=== PATIENT | female | born 1950 | race Caucasian/White ===

== ENCOUNTER 2019-08-27 06:00 | Outpatient (RCR) | payer MEDICARE, SELFPAY | END 2019-09-26 00:01 | LOC: SPT 06:00 | PROVIDERS: Family Provider Family Medicine; Visit Provider Specialist | DX: Z47.1 Aftercare following joint replacement surgery (principal); Z96.611 Presence of right artificial shoulder joint; M25.511 Pain in right shoulder; M25.611 Stiffness of right shoulder, not elsewhere classified | CPT/HCPCS: 97110 ×3; 97530 ==

== ENCOUNTER 2020-02-09 14:39 | Outpatient (CLI) | payer MEDICARE, SELFPAY ==
--- NOTE | 2020-02-09 14:45 | MM_ITS ---
WS: [id number] BILATERAL SCREENING DIGITAL MAMMOGRAM WITH CAD HISTORY: SCREEN COMPARISON: 06/11/2016 Bilateral CC and MLO views submitted. Computer aided detection analyzed. Breast composition: There are scattered areas of fibroglandular density. No suspicious masses, microc alcifications or architectural distortion. Benign calcifications within each breast. MM/[place] [id number] IMPRESSION: BI-RADS: 2-Benign FOLLOW UP: 1 Year Follow-up
== END 2020-02-09 14:40 | disposition home or self-care (01) ==
PROVIDERS: PCP Family Medicine; Visit Provider Family Medicine
DX: Z12.31 Encounter for screening mammogram for malignant neoplasm of breast (principal)
CPT/HCPCS: 77067

== ENCOUNTER → 2020-04-16 11:38 | Outpatient (BNVA) | payer MEDICARE, SELFPAY | PROVIDERS: PCP Family Medicine; Visit Provider Family Medicine | DX: F41.8 Other specified anxiety disorders (principal) | CPT/HCPCS: 80048; 80178 ==

== ENCOUNTER → 2020-04-18 11:08 | Outpatient (BNVA) | payer MEDICARE, SELFPAY | PROVIDERS: PCP Family Medicine; Visit Provider Family Medicine | DX: M16.9 Osteoarthritis of hip, unspecified (principal); E11.9 Type 2 diabetes mellitus without complications; M16.12 Unilateral primary osteoarthritis, left hip; F41.8 Other specified anxiety disorders; Z68.33 Body mass index [BMI] 33.0-33.9, adult; Z71.89 Other specified counseling | CPT/HCPCS: 83036 ==

== ENCOUNTER 2020-04-19 12:37 | Outpatient (CLI) | payer MEDICARE, SELFPAY ==
--- NOTE | 2020-04-19 12:42 | XRR_ITS ---
PROCEDURE INFORMATION: Exam: XR Left Hip with Pelvis when Performed Exam date and time: 04/19/2020 12:42 PM Age: 69 years old Clinical indication: Hip pain; Left hip; Additional info: Pain left hip TECHNIQUE: Imaging protocol: XR Left hip with pelvis when performed. Views: 2 or 3 views. COMPARISON: CT abdomen pelvis w con* [id number] 11/04/2018 9:47 AM FINDINGS: Bones/joints: Moderate degenerative changes within the hip including joint space narrowing and osteophyte formation. No fracture. The trabecular stress markings normal. Soft tissues: Unremarkable. XR/XR hip LT 2-3V wo/w pel* [id number] IMPRESSION: Moderate degenerative changes within the hip.
== END 2020-04-19 12:38 | disposition home or self-care (01) ==
LOC: RADWPI 12:41
PROVIDERS: PCP Family Medicine; Visit Provider Family Medicine
DX: M25.552 Pain in left hip (principal)
CPT/HCPCS: 73502

== ENCOUNTER → 2020-06-28 16:43 | Outpatient (BNVA) | payer MEDICARE, SELFPAY | PROVIDERS: PCP Family Medicine; Visit Provider Emergency Medicine | DX: Z11.59 Encounter for screening for other viral diseases (principal) | CPT/HCPCS: 87635 ==

== ENCOUNTER → 2021-05-23 15:13 | Outpatient (BNVA) | payer MEDICARE, SELFPAY | PROVIDERS: PCP Family Medicine; Visit Provider Internal Medicine | DX: Z01.812 Encounter for preprocedural laboratory examination (principal); Z20.822 Contact with and (suspected) exposure to COVID-19 | CPT/HCPCS: 87635 ==

== ENCOUNTER 2021-05-26 14:07 | Day surgery (SDC) | payer MEDICARE, SELFPAY ==
[2021-05-21 12:52] VITALS: BMI 31.3
--- NOTE | 2021-05-26 09:02 | P.HP_ITS ---
Same Day Surgery H&P Indication for Procedure/HPI DATE OF PROCEDURE: May 26, 2021 CHIEF COMPLAINT/INDICATIONFOR SURGICAL PROCEDURE: Screening PREOP DIAGNOSIS: Screen PLANNED PROCEDRUE: Operation Date: 05/26/21 11:15 Proposed Procedures p Colonoscopy G0105 Z80.0(Not Applicable) - Billy Velasquez MD Medications/Allergies* Allergies/Adverse Reactions Allergy/AdvReac Type Severity Reaction Status Date / Time bupropion [From Wellbutrin] Allergy angry Verified 06/28/20 15:56 celecoxib [From Celebrex] Allergy nausea Verified 06/28/20 15:56 codeine Allergy nausea Verified 06/28/20 15:56 duloxetine [From Cymbalta] Allergy bleeding Verified 06/28/20 15:56 nickel Allergy unverified Verified 06/28/20 15:56 Sulfa (Sulfonamide Allergy rash Verified 06/28/20 15:56 Antibiotics) venlafaxine [From Effexor] Allergy unverified Verified 06/28/20 15:56 zonisamide [From Zonegran] Allergy tremors Verified 06/28/20 15:56 Pertinent History/Comorbid Conditions* Medical History (Updated 04/18/20 @ 20:43 by Meghana Negro MD) Depression with anxiety Type 2 diabetes mellitus Social History Smoking and tobacco status: never smoked Alcohol intake: current Alcohol intake frequency: holidays/special occasions only Pertinent Exam Findings alert, oriented x 3, clear to auscultation bilaterally, regular rate & rhythm, operative site marked and procedure specific exam findings Recommendations Surgery/Procedure today Coding Level of Care Code Acute [employer] for Kena Maravilla
[2021-05-26 14:24] VITALS: BP 155/80; PULSE 68; RESP 18; TEMP 36.2; O2SAT 96
[2021-05-26 14:38] LABS: Glucose Point of Care 136 mg/dL (70-110)
[2021-05-26] MEDS: sodium chloride 0.9% 1,000 ML 30 ML IV (14:40)
--- NOTE | 2021-05-26 15:21 | ANES.PREANE2 ---
Pre-Anesthetic Assessment Pre-Anesthetic Assessment: Height/Weight: Height 1.7 m Weight 90.718 kg Temp Pulse Resp BP Pulse Ox 97.2 F L 68 18 155/80 96 05/26/21 14:24 05/26/21 14:24 05/26/21 14:24 05/26/21 14:24 05/26/21 14:24 Proposed Procedure: Operation Date: 05/26/21 11:15 Proposed Procedures p Colonoscopy G0105 Z80.0(Not Applicable) - Billy Velasquez MD Familial anesthetic complications: none Was Beta Ruthie taken within 24 hours: N/A Was Clonidine taken within 24 hours: N/A Last intake: Intake Last Liquid Date 05/25/21 Last Liquid Time 22:00 Last Solid Date 05/24/21 Last Solid Time 12:00 Social: Social History: No alcohol and No tobacco Exam: Pre-Anes Outpt Exam: alert, oriented x 3, clear to auscultation bilaterally and regular rate & rhythm Airway: Cervical ROM: WNL MP: 2 Dentition: Full Pulmonary: Comments: hx lung cancer (not smoking-related) - s/p thoracotomy CV/HEM: CV/HEM: HTN Metabolic: Metabolic: DM and Thyroid Anesthetic Plan: ASA status: 3 Anesthesia: MAC Risk of > 500 ml blood loss (7ml/kg in children): No Meds/Allergies Current Medications: Current Medications Generic Name Dose Route Start Last Admin Trade Name Freq PRN Reason Stop Dose Admin Sodium Chloride 1,000 mls @ 30 ml s/hr 05/26/21 14:15 05/26/21 14:40 Sodium Chloride 0.9% IV 30 mls/hr .Q24H LIANA Administration PFSH Anesthesia PFSH: Medical History Depression with anxiety Type 2 diabetes mellitus Social History Smoking and tobacco status: never smoked Alcohol intake: current Alcohol intake frequency: holidays/special occasions only Data Anesthesia Other Labs: Laboratory Results - last 48 hr 05/26/21 14:32 POC Glucose 136 H Cardiac Studies: No Data to Display
[2021-05-26 15:36] VITALS: BP 155/82; PULSE 61; RESP 16; TEMP 36.1; O2SAT 97
--- NOTE | 2021-05-26 15:38 | ANE.PACU2 ---
Inpatient post-anesthesia follow up: Airway intact: Yes Vital signs: Temperature 97.2 F Pulse Rate 68 Respiratory Rate 18 Blood Pressure 155/80 Pulse Oximetry 96 Oxygen Delivery Me thod Room Air Oxygen Flow Rate Fraction of Inspir ed Oxygen Hydration adequate: Yes Nausea and vomiting: No Pain level: 1 Mental status: Baseline
[2021-05-26 15:46] VITALS: BP 153/79; PULSE 59; RESP 16; O2SAT 59
== END 2021-05-26 16:08 | disposition home or self-care (01) ==
PROVIDERS: PCP Family Medicine; Visit Provider Internal Medicine
PROC: 0DJD8ZZ Inspection of Lower Intestinal Tract, Via Natural or Artificial Opening Endoscopic (ICD-10-PCS; CPT 45378; principal; 2021-05-26 11:15)
DX: Z12.11 Encounter for screening for malignant neoplasm of colon (principal); Z80.0 Family history of malignant neoplasm of digestive organs; F32.9 Major depressive disorder, single episode, unspecified; F41.9 Anxiety disorder, unspecified; I10 Essential (primary) hypertension; E11.9 Type 2 diabetes mellitus without complications
CPT/HCPCS: 36416; 45378; 82962; 96360; G0121; J2704; J7030

== ENCOUNTER → 2021-09-11 11:07 | Outpatient (BNVA) | payer MEDICARE, SELFPAY | PROVIDERS: PCP Family Medicine; Visit Provider Family Medicine | DX: F41.8 Other specified anxiety disorders (principal); E11.9 Type 2 diabetes mellitus without complications; E03.8 Other specified hypothyroidism; E78.00 Pure hypercholesterolemia, unspecified | CPT/HCPCS: 80053; 80061; 80178; 83036; 84443; 85025 ==

== ENCOUNTER → 2021-12-30 13:12 | Outpatient (BNVA) | payer MEDICARE, SELFPAY | PROVIDERS: PCP Family Medicine; Visit Provider Family Medicine | DX: E78.00 Pure hypercholesterolemia, unspecified (principal); E11.9 Type 2 diabetes mellitus without complications; F41.8 Other specified anxiety disorders; Z00.00 Encounter for general adult medical examination without abnormal findings; E03.8 Other specified hypothyroidism | CPT/HCPCS: 80053; 80061; 80178; 83036; 85025 ==

== ENCOUNTER → 2023-09-10 10:09 | Outpatient (BNVA) | payer MEDICARE, SELFPAY | PROVIDERS: PCP Family Medicine; Visit Provider Family Medicine | DX: F41.8 Other specified anxiety disorders (principal); E11.9 Type 2 diabetes mellitus without complications; E03.8 Other specified hypothyroidism; I10 Essential (primary) hypertension; E78.00 Pure hypercholesterolemia, unspecified | CPT/HCPCS: 80053; 80061; 82043; 83036; 84439; 84443; 85025 ==

== ENCOUNTER 2023-09-14 14:25 | Outpatient (CLI) | payer MEDICARE, SELFPAY ==
--- NOTE | 2023-09-14 14:30 | XR_ITS ---
WS: [id number] Right foot, 3 views, 09/14/2023 Clinical Data: right foot pain Comparison: None. Findings: No fractures or dislocations are seen. No bone destruction or erosion is noted. The joint spaces and soft tissues are normal. There is a plantar spur. Impression: Negative right foot.
== END 2023-09-14 14:26 | disposition home or self-care (01) ==
LOC: RAD 14:27
PROVIDERS: PCP Family Medicine; Visit Provider Family Medicine
DX: M79.671 Pain in right foot (principal)
CPT/HCPCS: 73630

== ENCOUNTER 2023-09-22 08:53 | Outpatient (CLI) | payer MEDICARE, SELFPAY ==
--- NOTE | 2023-09-22 09:00 | CTR_ITS ---
PROCEDURE INFORMATION: Exam: CT Chest With Contrast; Diagnostic Exam date and time: 09/22/2023 9:05 AM Age: 73 years old Clinical indication: Shortness of breath; Prior surgery; Surgery date: 6+ months; Surgery type: Shoulder and back; Additional info: Increased SOB TECHNIQUE: Imaging protocol: Diagnostic computed tomography of the chest with contrast. Radiation optimization: All CT scans at this facility use at least one of these dose optimization techniques: automated exposure control; mA and/or kV adjustment per patient size (includes targeted exams where dose is matched to clinical indication); or iterative reconstruction. Contrast material: OMNI 350; Contrast volume: 100 ml; Contrast route: INTRAVENOUS (IV); REPORTING DATA: Count of CT and Cardiac NM exams in prior 12 months: This patient has received 0 known CTs and 0 known cardiac nuclear medicine studies in the 12 months prior to the current study. COMPARISON: CR XR chest 1V [id number] 06/16/2019 12:48 PM RADIATION DOSE METRICS: Total DLP (mGy-cm): 465.11 FINDINGS: Thyroid: The thyroid gland is diffusely enlarged. Please correlate clinically. Lungs: In the left upper lobe there is an 11 x 12 mm noncalcified nodule. Subsegmental atelectasis is noted in the lingula, right middle and bilateral lower lobes. Pleural spaces: Unremarkable. No pneumothorax. No pleural effusion. Heart: Unremarkable. No cardiomegaly. No pericardial effusion. Coronary arteries: Coronary artery calcification is present. Mediastinal space: There is mild mural thickening of the distal thoracic esophagus. Please correlate clinically, endoscopically. Lymph nodes: Calcified mediastinal and hilar lymphadenopathy is noted. Vasculature: Unremarkable. No aortic aneurysm. Bones/joints: Degenerative changes are noted in the bones. The patient is post right shoulder arthroplasty. Soft tissues: Unremarkable. CT/CT chest w con* [id number] IMPRESSION: 12 mm left upper lobe pulmonary nodule. Recommend PET-CT based on Fleischner society criteria. Query mural thickening of the distal thoracic esophagus. Please correlate clinically, endoscopically. Calcific mediastinal and hilar lymphadenopathy indicating granulomatous disease.
[2023-09-22] MEDS: iohexol 350 mg/mL 500 mL Btl (per mL) IV (09:09)
== END 2023-09-22 08:54 | disposition home or self-care (01) ==
LOC: RAD 08:54
PROVIDERS: PCP Family Medicine; Visit Provider Family Medicine
DX: Z85.118 Personal history of other malignant neoplasm of bronchus and lung (principal); R06.02 Shortness of breath; R91.1 Solitary pulmonary nodule; K22.9 Disease of esophagus, unspecified; I89.8 Other specified noninfective disorders of lymphatic vessels and lymph nodes
CPT/HCPCS: 71260; Q9967

== ENCOUNTER 2023-11-16 09:42 | Outpatient (CLI) | payer MEDICARE, SELFPAY ==
--- NOTE | 2023-11-16 11:30 | PETR_ITS ---
PROCEDURE INFORMATION: Exam: PET/CT Skull Base to Mid-thigh Exam date and time: 11/16/2023 11:01 AM Age: 73 years old Clinical indication: Characterization of solitary pulmonary nodule. 12 mm left upper lobe pulmonary nodule found on CT chest on 09/22/2023. Recommend pet-ct based on. Fleischner society criteria. Prior surgery; Surgery date: 6+ months; Surgery type: Shoulder and back. LABS AND CLINICAL REPORTS: Glucose: 126 mg/dl Treatment strategy for malignancy (PET staging): Initial Staging (PI) TECHNIQUE: Imaging protocol: Following at least four-hour fasting and following the injection of radiopharmaceutical, low dose CT images were obtained. Then, PET images were obtained. Attenuation corrected images were constructed using the CT scan. Fused images of PET and CT were reviewed. The standardized uptake values (SUV) reported below are maximum values within a region of interest, expressed in gm/ml. Exam includes orbital meatal line to mid-thigh. Radiopharmaceutical: 13.28 mCi F-18 FDG (Fluorodeoxyglucose), IV. Time of imaging post radiopharmaceutical administration: 1 hour Injection site: Right antecubital vein COMPARISON: CT chest 09/22/2023, CT abdomen pelvis w con* [id number] 11/04/2018 FINDINGS: Brain: Visualized brain has normal physiologic uptake. Pharynx: No abnormal uptake. Larynx: No abnormal uptake. Thyroid: Diffuse intense uptake up to 10.3 SUV with no discrete focal nodules is suggestive of thyroiditis. Lungs, pleura and trachea: No abnormal uptake. 13 mm left upper lobe nodule with low-grade uptake of 1 SUV is compatible with benign finding. Teardrop shaped 11 x 4 mm calcification in the right lower lobe is suggestive of sequela of granulomatous disease. No pleural effusion. Heart: Normal physiologic uptake. There is no cardiomegaly. Coronary artery calcification is present. There is no pericardial effusion. Mediastinal space: No abnormal uptake. There is a small hiatal hernia. Liver: No abnormal uptake. Gallbladder and bile ducts: No abnormal uptake. Status post cholecystectomy. Pancreas: No abnormal uptake. Spleen: No abnormal uptake. No splenomegaly. Adrenal glands: No abnormal uptake. No nodules. Kidneys and ureters: Normal physiologic uptake. No hydronephrosis. Stomach and bowel: Increased uptake in the ascending colon with no corresponding CT abnormality is likely benign. Intraperitoneal and retroperitoneal spaces: No abnormal uptake. No ascites. Urinary bladder: Normal physiologic uptake. Reproductive: No abnormal uptake. The uterus is absent post surgically. Vasculature: No abnormal uptake. No aortic aneurysm. Lymph nodes: No abnormal uptake. No lymphadenopathy in the head, neck, chest, abdomen, pelvis, and extremities. There is sequela of exposure to granulomatous disease with calcified subcarinal and bilateral hilar lymph nodes. Bones/joints: No abnormal uptake in the visualized axial and appendicular skeleton. Status post right shoulder replacement. Status post L4-S1 fusion with bilateral transpedicular internal fixation. Soft tissues: No abnormal uptake in the visualized head, neck, chest, abdomen, pelvis, and extremities. PET/PET skulltothi INITIAL [id number] IMPRESSION: No abnormal radiotracer uptake to suggest malignancy. 13 mm left upper lobe nodule is not FDG avid compatible with benign finding. Diffusely increased FDG uptake in the thyroid suggestive of thyroiditis.
== END 2023-11-16 09:43 | disposition home or self-care (01) ==
LOC: RAD 09:42
PROVIDERS: PCP Family Medicine; Visit Provider Family Medicine
DX: R91.8 Other nonspecific abnormal finding of lung field (principal); R91.1 Solitary pulmonary nodule
CPT/HCPCS: 78815; A9552

== ENCOUNTER → 2024-01-24 15:32 | Outpatient (BNVA) | payer MEDICARE, SELFPAY | PROVIDERS: PCP Family Medicine; Visit Provider Family Medicine | DX: E03.8 Other specified hypothyroidism (principal); I10 Essential (primary) hypertension; E78.00 Pure hypercholesterolemia, unspecified; E11.9 Type 2 diabetes mellitus without complications; F41.8 Other specified anxiety disorders; E06.3 Autoimmune thyroiditis | CPT/HCPCS: 84439; 84443; 86376 ==

== ENCOUNTER → 2024-02-29 15:16 | Outpatient (BNVA) | payer MEDICARE, SELFPAY | PROVIDERS: PCP Family Medicine; Visit Provider Family Medicine | DX: E11.9 Type 2 diabetes mellitus without complications (principal); E06.3 Autoimmune thyroiditis | CPT/HCPCS: 84439; 84443 ==